=== PATIENT | female | born 1960 | race Caucasian/White ===

== ENCOUNTER 2018-03-01 18:41 | Inpatient (IN) | payer MEDICAID ==
[~2018-03-01] VITALS: Ht 152.4 cm; Wt 64.0 kg
[~2018-03-01 18:41] MED LIST: PHENY100 PO
[2018-03-01] MEDS ORDERED: SODIUM CHLORIDE 0.9% 1,000 ML IV ONE (19:30)
[2018-03-01] MEDS ORDERED: MAGNESIUM SULFATE 2 GM, MVI, ADULT NO.1 WITH VIT K 10 ML, THIAMINE HCL 100 MG, FOLIC AC... IV ONE ×5 (19:30)
[2018-03-01 20:15] LABS: BASOPHILS % (AUTO) 2.9 % (0.0-2.0); EOSINOPHILS % (AUTO) 6.8 % (1.0-6.0); HEMATOCRIT 28.5 % (36-46); HEMOGLOBIN 9.5 g/dL (12.0-16.0); LYMPHOCYTES # (AUTO) 1.3 K/uL (1.0-4.8); LYMPHOCYTES % (AUTO) 32.2 % (22.0-44.0); MEAN CORPUSCULAR HEMOGLOBIN 31.5 pg (26.0-34.0); MEAN CORPUSCULAR HGB CONC 33.5 G/dL (31.0-37.0); MEAN CORPUSCULAR VOLUME 94 fL (80-100); MONOCYTES # (AUTO) 0.4 K/uL (0.1-1.0); MONOCYTES % (AUTO) 9.8 % (2.0-9.0); NEUTROPHILS % (AUTO) 48.3 % (40.0-70.0); PLATELET COUNT (AUTO) 129 K/uL (150-450); RED BLOOD CELL COUNT(AUTO) 3.03 MIL/uL (4.00-5.20); RED CELL DISTRIBUTION WIDTH 22.3 % (11.5-14.5)
[2018-03-01 20:25] LABS: ANION GAP 12 mmol/L (8-16); CALCIUM, TOTAL 8.9 mg/dL (8.8-10.5); CARBON DIOXIDE 22 mmol/L (22-29); CHLORIDE 108 mmol/L (98-107); CREATININE 0.53 mg/dL (0.60-1.30); GLOMERULAR FILTR. RATE CALC > 60 mL/min (>60); GLUCOSE,RANDOM 74 mg/dL (70-110); POTASSIUM 3.6 mmol/L (3.5-5.1); SODIUM SERUM 142 mmol/L (136-145); UREA NITROGEN, BLOOD 9 mg/dL (7-18)
[2018-03-01 20:31] LABS: ALANINE AMINOTRANSFERASE 47 U/L (12-78); ALKALINE PHOSPHATASE 184 U/L (46-116); ASPARTATE AMINOTRANSFERASE 98 U/L (15-37); BILIRUBIN,TOTAL 1.7 mg/dL (0.1-1.0); TOTAL PROTEIN, SERUM 7.1 g/dL (6.4-8.2)
[2018-03-01 20:42] LABS: AMPHET/METH SCREEN,URINE POSITIVE (NEGATIVE); BARBITURATE SCREEN, URINE NEGATIVE (NEGATIVE); BENZODIAZEPINES SCREEN,URINE POSITIVE (NEGATIVE); CANNABINOID SCREEN,URINE NEGATIVE (NEGATIVE); COCAINE SCREEN,URINE NEGATIVE (NEGATIVE); METHADONE SCREEN, URINE NEGATIVE (NEGATIVE); OPIATE SCREEN,URINE NEGATIVE (NEGATIVE); PHENCYCLIDINE SCREEN,URINE NEGATIVE (NEGATIVE)
[2018-03-01 20:48] LABS: PLATELET MORPHOLOGY COMMENT DECREASED
[2018-03-01] MEDS ORDERED: ACETAMINOPHEN 325 MG TABLET PO ONE (21:45)
[2018-03-01] MEDS ORDERED: LORazepam 1 MG TABLET PO ONE (22:30)
[2018-03-01 23:51] LABS: HEMOGLOBIN A1C 4.2 % (4.5-6.2)
[2018-03-01 23:59] LABS: CHOL/HDL RATIO 5.3 (3.9-5.7); CHOLESTEROL 143 mg/dL (131-200); FREE T4 (FREE THYROXINE) 0.82 ng/dL (0.76-1.46); HDL CHOLESTEROL 27 mg/dL (40-60); LDL CHOL (CALC.) 105 mg/dL (0-130); THYROID STIMULATING HORMONE 3.11 uIU/mL (0.36-3.74); TRIGLYCERIDES 57 mg/dL (15-150)
[2018-03-02] MEDS: LORazepam 2 MG TABLET PO PRN ×3 (09:38→21:11)
[2018-03-02 16:30] VITALS: BP 128/87
[2018-03-02] MEDS ORDERED: BENZOCAINE/MENTHOL LOZENGE MM PRN (20:00)
[2018-03-02] MEDS ORDERED: MAG HYDROX/AL HYDROX/SIMETH ES 30 ML SUSPENSION UDCUP PO PRN (20:00)
[2018-03-02] MEDS ORDERED: MAGNESIUM HYDROXIDE SUSPENSION 30 ML UDCUP PO PRN (20:00)
[2018-03-02] MEDS ORDERED: ALBUTEROL SULFATE HFA 90 MCG/PUFF 8 GM INHALER IH PRN (20:00)
[2018-03-02] MEDS ORDERED: ONDANSETRON HCL 4 MG TABLET PO PRN (20:00)
[2018-03-02] MEDS ORDERED: PETROLATUM,WHITE 71 GM JELLY TP PRN (20:00)
[2018-03-02] MEDS ORDERED: CloNIDine HCL 0.1 MG TABLET PO PRN (20:00)
[2018-03-02] MEDS ORDERED: ACETAMINOPHEN 325 MG TABLET PO PRN (20:00)
[2018-03-02] MEDS ORDERED: BACITRACIN 28.4 GM OINTMENT TP PRN (20:00)
[2018-03-02] MEDS: ZOLPIDEM TARTRATE 10 MG TABLET PO PRN (21:11)
[2018-03-03] VITALS (15 sets, daily range): BP systolic 106–143; BP diastolic 56–85
[2018-03-03] MEDS: IBUPROFEN 600 MG TABLET PO PRN ×3 (03:56→20:23)
[2018-03-03] MEDS: LORazepam 2 MG TABLET PO PRN ×3 (03:56→16:25)
[2018-03-03] MEDS: DOCUSATE SODIUM 100 MG CAPSULE PO SCH (09:29)
[2018-03-03] MEDS: PHENYTOIN SODIUM 100 MG ER CAPSULE PO SCH ×3 (09:29→16:20)
[2018-03-03] MEDS: OMEPRAZOLE 20 MG CAPSULE PO SCH (09:29)
[2018-03-03] MEDS: NICOTINE 21 MG/24 HOUR PATCH TD SCH (09:29)
[2018-03-03] MEDS: HALOPERIDOL 5 MG TABLET PO PRN ×2 (11:01→20:27)
[2018-03-03] MEDS ORDERED: PROMETHAZINE HCL 25 MG TABLET PO PRN (11:30)
[2018-03-03] MEDS ORDERED: GuaiFENesin/D-METHORPHAN [SUGAR-FREE] 200-20MG/10 ML SYRUP UDCUP PO PRN (11:30)
[2018-03-03] MEDS ORDERED: LORazepam 2 MG TABLET PO PRN (11:30)
[2018-03-03] MEDS ORDERED: HydrOXYzine PAMOATE 50 MG CAPSULE PO PRN (11:30)
[2018-03-03] MEDS ORDERED: CYANOCOBALAMIN 1,000 MCG/ML VIAL IM ONE (11:45)
[2018-03-03] MEDS: THIAMINE HCL 100 MG TABLET PO SCH (16:20)
[2018-03-03] MEDS: ZOLPIDEM TARTRATE 10 MG TABLET PO PRN (20:23)
[2018-03-03] MEDS: MIRTAZAPINE 15 MG TABLET PO SCH (20:25)
[2018-03-04] VITALS (8 sets, daily range): BP systolic 97–141; BP diastolic 60–88
[2018-03-04] MEDS ORDERED: LORazepam 2 MG TABLET PO PRN (07:00)
[2018-03-04] MEDS: LORazepam 2 MG TABLET PO SCH ×4 (08:29→21:14)
[2018-03-04] MEDS: DOCUSATE SODIUM 100 MG CAPSULE PO SCH (08:30)
[2018-03-04] MEDS: THIAMINE HCL 100 MG TABLET PO SCH ×2 (08:30→17:02)
[2018-03-04] MEDS: PHENYTOIN SODIUM 100 MG ER CAPSULE PO SCH ×3 (08:30→17:02)
[2018-03-04] MEDS: FOLIC ACID 1 MG TABLET PO SCH (08:30)
[2018-03-04] MEDS: MULTIVITAMINS WITH MINERALS, THERAPEUTIC TABLET PO SCH (08:30)
[2018-03-04] MEDS: OMEPRAZOLE 20 MG CAPSULE PO SCH (08:30)
[2018-03-04] MEDS: NICOTINE 21 MG/24 HOUR PATCH TD SCH (08:32)
[2018-03-04] MEDS: HALOPERIDOL 5 MG TABLET PO PRN (19:43)
[2018-03-04] MEDS: ZOLPIDEM TARTRATE 10 MG TABLET PO PRN (21:14)
[2018-03-04] MEDS: MIRTAZAPINE 15 MG TABLET PO SCH (21:14)
[2018-03-05 06:25] VITALS: BP 115/71
[2018-03-05 08:30] VITALS: BP 133/77
[2018-03-05 08:55] VITALS: BP 156/78
[2018-03-05] MEDS: FOLIC ACID 1 MG TABLET PO SCH (08:59)
[2018-03-05] MEDS: THIAMINE HCL 100 MG TABLET PO SCH ×2 (08:59→16:47)
[2018-03-05] MEDS: IBUPROFEN 600 MG TABLET PO PRN (08:59)
[2018-03-05] MEDS: PHENYTOIN SODIUM 100 MG ER CAPSULE PO SCH ×3 (08:59→16:47)
[2018-03-05] MEDS: LORazepam 2 MG TABLET PO SCH ×4 (08:59→20:53)
[2018-03-05] MEDS: MULTIVITAMINS WITH MINERALS, THERAPEUTIC TABLET PO SCH (08:59)
[2018-03-05] MEDS: OMEPRAZOLE 20 MG CAPSULE PO SCH (08:59)
[2018-03-05] MEDS: DOCUSATE SODIUM 100 MG CAPSULE PO SCH (08:59)
[2018-03-05] MEDS: NICOTINE 21 MG/24 HOUR PATCH TD SCH (09:02)
[2018-03-05 17:09] VITALS: BP 132/70
[2018-03-05] MEDS: MIRTAZAPINE 15 MG TABLET PO SCH (20:53)
[2018-03-06] MEDS: LOPERAMIDE HCL 2 MG CAPSULE PO PRN ×2 (01:46→20:34)
[2018-03-06 02:20] VITALS: BP 134/74
[2018-03-06 02:21] VITALS: BP 134/74
[2018-03-06] MEDS ORDERED: LORazepam 1 MG TABLET PO PRN (07:00)
[2018-03-06] MEDS: FOLIC ACID 1 MG TABLET PO SCH (09:04)
[2018-03-06] MEDS: THIAMINE HCL 100 MG TABLET PO SCH ×2 (09:04→16:10)
[2018-03-06] MEDS: PHENYTOIN SODIUM 100 MG ER CAPSULE PO SCH ×3 (09:04→16:10)
[2018-03-06] MEDS: NICOTINE 21 MG/24 HOUR PATCH TD SCH (09:04)
[2018-03-06] MEDS: OMEPRAZOLE 20 MG CAPSULE PO SCH (09:04)
[2018-03-06] MEDS: MULTIVITAMINS WITH MINERALS, THERAPEUTIC TABLET PO SCH (09:04)
[2018-03-06] MEDS: LORazepam 1 MG TABLET PO SCH ×4 (09:04→20:32)
[2018-03-06] MEDS: DOCUSATE SODIUM 100 MG CAPSULE PO SCH (09:04)
[2018-03-06 09:30] VITALS: BP 122/71
[2018-03-06 09:34] VITALS: BP 122/72
[2018-03-06] MEDS: FLUoxetine HCL 20 MG CAPSULE PO SCH (11:57)
[2018-03-06 17:00] VITALS: BP 132/70
[2018-03-06 17:01] VITALS: BP 132/70
[2018-03-06] MEDS: MIRTAZAPINE 15 MG TABLET PO SCH (20:32)
[2018-03-07] MEDS: LOPERAMIDE HCL 2 MG CAPSULE PO PRN ×3 (00:12→12:22)
[2018-03-07 03:09] VITALS: BP 135/71
[2018-03-07 03:11] VITALS: BP 135/71
[2018-03-07 08:09] VITALS: BP 129/73
[2018-03-07 08:25] VITALS: BP 129/73
[2018-03-07] MEDS: DOCUSATE SODIUM 100 MG CAPSULE PO SCH (09:00)
[2018-03-07] MEDS: OMEPRAZOLE 20 MG CAPSULE PO SCH (09:17)
[2018-03-07] MEDS: FLUoxetine HCL 20 MG CAPSULE PO SCH (09:17)
[2018-03-07] MEDS: PHENYTOIN SODIUM 100 MG ER CAPSULE PO SCH ×3 (09:17→16:21)
[2018-03-07] MEDS: MULTIVITAMINS WITH MINERALS, THERAPEUTIC TABLET PO SCH (09:22)
[2018-03-07] MEDS: NICOTINE 21 MG/24 HOUR PATCH TD SCH (09:22)
[2018-03-07] MEDS: THIAMINE HCL 100 MG TABLET PO SCH ×2 (09:22→16:21)
[2018-03-07] MEDS: FOLIC ACID 1 MG TABLET PO SCH (09:23)
[2018-03-07] MEDS: LORazepam 1 MG TABLET PO PRN ×2 (12:22→21:24)
[2018-03-07 19:13] VITALS: BP 131/75
[2018-03-07 19:16] VITALS: BP 131/75
[2018-03-07] MEDS: MIRTAZAPINE 15 MG TABLET PO SCH (20:23)
[2018-03-07] MEDS: ZOLPIDEM TARTRATE 10 MG TABLET PO PRN (20:23)
[2018-03-08 03:50] VITALS: BP 131/77
[2018-03-08] MEDS: IBUPROFEN 600 MG TABLET PO PRN (03:57)
[2018-03-08] MEDS: LORazepam 2 MG TABLET PO PRN ×2 (03:57→14:05)
[2018-03-08] MEDS: FERROUS SULFATE 325 MG EC TABLET PO SCH ×2 (06:35→17:54)
[2018-03-08 08:00] VITALS: BP 161/88
[2018-03-08] MEDS: THIAMINE HCL 100 MG TABLET PO SCH ×3 (09:00→17:54)
[2018-03-08] MEDS: OMEPRAZOLE 20 MG CAPSULE PO SCH (09:00)
[2018-03-08] MEDS: NICOTINE 21 MG/24 HOUR PATCH TD SCH (09:00)
[2018-03-08] MEDS: FOLIC ACID 1 MG TABLET PO SCH ×2 (09:00→12:57)
[2018-03-08] MEDS: FLUoxetine HCL 20 MG CAPSULE PO SCH (09:00)
[2018-03-08] MEDS: PHENYTOIN SODIUM 100 MG ER CAPSULE PO SCH ×3 (09:00→17:54)
[2018-03-08] MEDS: DOCUSATE SODIUM 100 MG CAPSULE PO SCH (09:00)
[2018-03-08 12:35] VITALS: BP 111/62
[2018-03-08 17:00] VITALS: BP 112/68
[2018-03-08] MEDS: MIRTAZAPINE 15 MG TABLET PO SCH (20:49)
[2018-03-08] MEDS: ZOLPIDEM TARTRATE 10 MG TABLET PO PRN (21:27)
[2018-03-09 02:30] VITALS: BP 127/77
[2018-03-09] MEDS: LORazepam 2 MG TABLET PO PRN ×2 (02:34→16:13)
[2018-03-09] MEDS: FERROUS SULFATE 325 MG EC TABLET PO SCH ×2 (06:53→16:47)
[2018-03-09] MEDS: PHENYTOIN SODIUM 100 MG ER CAPSULE PO SCH ×3 (08:22→16:14)
[2018-03-09] MEDS: FOLIC ACID 1 MG TABLET PO SCH (08:22)
[2018-03-09] MEDS: THIAMINE HCL 100 MG TABLET PO SCH ×2 (08:22→16:14)
[2018-03-09] MEDS: FLUoxetine HCL 20 MG CAPSULE PO SCH (08:22)
[2018-03-09] MEDS: DOCUSATE SODIUM 100 MG CAPSULE PO SCH (08:22)
[2018-03-09] MEDS: NICOTINE 21 MG/24 HOUR PATCH TD SCH (08:22)
[2018-03-09] MEDS: OMEPRAZOLE 20 MG CAPSULE PO SCH (08:22)
[2018-03-09 10:40] VITALS: BP 126/88
[2018-03-09 19:43] VITALS: BP 124/78
[2018-03-09] MEDS: MIRTAZAPINE 15 MG TABLET PO SCH (20:28)
[2018-03-09] MEDS: ZOLPIDEM TARTRATE 10 MG TABLET PO PRN (20:29)
[2018-03-10] MEDS: LORazepam 2 MG TABLET PO PRN ×4 (01:48→20:39)
[2018-03-10 01:49] VITALS: BP 120/69
[2018-03-10] MEDS: FERROUS SULFATE 325 MG EC TABLET PO SCH ×2 (06:32→17:25)
[2018-03-10] MEDS: FOLIC ACID 1 MG TABLET PO SCH (08:16)
[2018-03-10] MEDS: OMEPRAZOLE 20 MG CAPSULE PO SCH (08:16)
[2018-03-10] MEDS: THIAMINE HCL 100 MG TABLET PO SCH ×2 (08:16→16:29)
[2018-03-10] MEDS: FLUoxetine HCL 20 MG CAPSULE PO SCH (08:16)
[2018-03-10] MEDS: DOCUSATE SODIUM 100 MG CAPSULE PO SCH (08:16)
[2018-03-10] MEDS: PHENYTOIN SODIUM 100 MG ER CAPSULE PO SCH ×3 (08:17→16:29)
[2018-03-10] MEDS: NICOTINE 21 MG/24 HOUR PATCH TD SCH (08:19)
[2018-03-10 10:30] VITALS: BP 132/70
[2018-03-10] MEDS: MIRTAZAPINE 15 MG TABLET PO SCH (20:39)
[2018-03-10] MEDS: HALOPERIDOL 5 MG TABLET PO PRN (20:39)
[2018-03-10 21:43] VITALS: BP 120/65
[2018-03-10 22:31] VITALS: BP 120/65
[2018-03-11 03:25] VITALS: BP 118/68
[2018-03-11] MEDS: FERROUS SULFATE 325 MG EC TABLET PO SCH ×2 (06:57→17:25)
[2018-03-11] MEDS: NICOTINE 21 MG/24 HOUR PATCH TD SCH (09:00)
[2018-03-11] MEDS: FOLIC ACID 1 MG TABLET PO SCH (09:28)
[2018-03-11] MEDS: THIAMINE HCL 100 MG TABLET PO SCH ×2 (09:28→16:25)
[2018-03-11] MEDS: DOCUSATE SODIUM 100 MG CAPSULE PO SCH (09:29)
[2018-03-11] MEDS: FLUoxetine HCL 20 MG CAPSULE PO SCH (09:29)
[2018-03-11] MEDS: OMEPRAZOLE 20 MG CAPSULE PO SCH (09:29)
[2018-03-11] MEDS: PHENYTOIN SODIUM 100 MG ER CAPSULE PO SCH ×3 (09:29→16:25)
[2018-03-11] MEDS ORDERED: LORazepam 0.5 MG TABLET PO PRN (17:15)
[2018-03-11 17:26] VITALS: BP 123/71
[2018-03-11] MEDS: HALOPERIDOL 5 MG TABLET PO PRN (20:02)
[2018-03-11] MEDS ORDERED: MIRTAZAPINE 15 MG TABLET PO SCH (21:00)
[2018-03-11] MEDS: ZOLPIDEM TARTRATE 10 MG TABLET PO PRN (22:09)
[2018-03-12] MEDS: FERROUS SULFATE 325 MG EC TABLET PO SCH (06:54)
[2018-03-12 06:58] LABS: BASOPHILS % (AUTO) 2.8 % (0.0-2.0); HEMATOCRIT 32.8 % (36-46); HEMOGLOBIN 11.2 g/dL (12.0-16.0); LYMPHOCYTES # (AUTO) 1.5 K/uL (1.0-4.8); LYMPHOCYTES % (AUTO) 31.6 % (22.0-44.0); MEAN CORPUSCULAR HEMOGLOBIN 31.9 pg (26.0-34.0); MEAN CORPUSCULAR HGB CONC 34.2 G/dL (31.0-37.0); MEAN CORPUSCULAR VOLUME 93 fL (80-100); MONOCYTES # (AUTO) 0.7 K/uL (0.1-1.0); MONOCYTES % (AUTO) 14.1 % (2.0-9.0); NEUTROPHILS # (AUTO) 2.1 K/uL (1.8-7.7); NEUTROPHILS % (AUTO) 43.5 % (40.0-70.0); PLATELET COUNT (AUTO) 178 K/uL (150-450); RED BLOOD CELL COUNT(AUTO) 3.52 MIL/uL (4.00-5.20); RED CELL DISTRIBUTION WIDTH 20.9 % (11.5-14.5)
[2018-03-12 07:33] LABS: ALANINE AMINOTRANSFERASE 50 U/L (12-78); ALBUMIN 3.3 g/dL (3.4-5.0); ALKALINE PHOSPHATASE 174 U/L (46-116); ANION GAP 11 mmol/L (8-16); ASPARTATE AMINOTRANSFERASE 72 U/L (15-37); BILIRUBIN,TOTAL 1.5 mg/dL (0.1-1.0); CALCIUM, TOTAL 9.5 mg/dL (8.8-10.5); CARBON DIOXIDE 23 mmol/L (22-29); CHLORIDE 105 mmol/L (98-107); CREATININE 0.61 mg/dL (0.60-1.30); GLOMERULAR FILTR. RATE CALC > 60 mL/min (>60); GLUCOSE,RANDOM 134 mg/dL (70-110); SODIUM SERUM 139 mmol/L (136-145); UREA NITROGEN, BLOOD 20 mg/dL (7-18)
[2018-03-12] MEDS: NICOTINE 21 MG/24 HOUR PATCH TD SCH (09:00)
[2018-03-12] MEDS: DOCUSATE SODIUM 100 MG CAPSULE PO SCH (09:33)
[2018-03-12] MEDS: FLUoxetine HCL 20 MG CAPSULE PO SCH (09:33)
[2018-03-12] MEDS: FOLIC ACID 1 MG TABLET PO SCH (09:33)
[2018-03-12] MEDS: THIAMINE HCL 100 MG TABLET PO SCH (09:33)
[2018-03-12] MEDS: PHENYTOIN SODIUM 100 MG ER CAPSULE PO SCH ×2 (09:33→12:29)
[2018-03-12] MEDS: OMEPRAZOLE 20 MG CAPSULE PO SCH (09:33)
[2018-03-12 09:41] VITALS: BP 150/79
[2018-03-12] MEDS ORDERED: MIRT30 PO (11:05)
[2018-03-12] MEDS ORDERED: FLUO-191 PO (11:05)
[2018-03-12] MEDS ORDERED: FOLI1 PO (11:07)
[2018-03-12] MEDS ORDERED: OMEP20 PO (11:08)
[2018-03-12] MEDS ORDERED: DSS100 PO (11:08)
[2018-03-12] MEDS ORDERED: FERR-89 PO (11:10)
== END 2018-03-12 13:15 | disposition home or self-care (01) | DRG 751 ==
LOC: EMS 18:42 → 3EI 03-02 15:32
PROVIDERS: ADMIT Psychiatry & Neurology Psychiatry; ATTEND Psychiatry & Neurology Psychiatry
DX: F33.2 Major depressive disorder, recurrent severe without psychotic features (principal); D61.818 Other pancytopenia; R45.851 Suicidal ideations; B19.20 Unspecified viral hepatitis C without hepatic coma; F10.229 Alcohol dependence with intoxication, unspecified; F12.90 Cannabis use, unspecified, uncomplicated; F15.10 Other stimulant abuse, uncomplicated; F10.239 Alcohol dependence with withdrawal, unspecified; G40.909 Epilepsy, unspecified, not intractable, without status epilepticus; Y90.6 Blood alcohol level of 120-199 mg/100 ml; F17.210 Nicotine dependence, cigarettes, uncomplicated; R04.0 Epistaxis; M54.2 Cervicalgia; Z59.0 Homelessness; Z88.8 Allergy status to other drugs, medicaments and biological substances; Z91.013 Allergy to seafood; Z79.899 Other long term (current) drug therapy; Z90.49 Acquired absence of other specified parts of digestive tract; Z71.6 Tobacco abuse counseling; Z71.41 Alcohol abuse counseling and surveillance of alcoholic; Z71.51 Drug abuse counseling and surveillance of drug abuser
CPT/HCPCS: 83036; 84439; 84443; 96365; 96366; 99285; G0480; J3411; J3420; J3475; J3490; J7030

== ENCOUNTER 2019-01-17 14:02 | Emergency (ER) | payer MEDICAID ==
[~2019-01-17] VITALS: Ht 165.1 cm; Wt 86.0 kg
[~2019-01-17 14:02] MED LIST changes: +DSS100 PO; +FERR-89 PO; +FLUO-191 PO; +MIRT30 PO; +OMEP20 PO
[2019-01-17 15:35] LABS: BASOPHILS % (AUTO) 2.4 % (0.0-2.0); HEMATOCRIT 26.5 % (36-46); HEMOGLOBIN 8.6 g/dL (12.0-16.0); LYMPHOCYTES # (AUTO) 0.8 K/uL (1.0-4.8); MEAN CORPUSCULAR HEMOGLOBIN 32.5 pg (26.0-34.0); MEAN CORPUSCULAR HGB CONC 32.6 G/dL (31.0-37.0); MEAN CORPUSCULAR VOLUME 100 fL (80-100); MONOCYTES # (AUTO) 0.4 K/uL (0.1-1.0); NEUTROPHILS # (AUTO) 1.3 K/uL (1.8-7.7); NEUTROPHILS % (AUTO) 47.6 % (40.0-70.0); PLATELET COUNT (AUTO) 102 K/uL (150-450); RED BLOOD CELL COUNT(AUTO) 2.65 MIL/uL (4.00-5.20); RED CELL DISTRIBUTION WIDTH 20.7 % (11.5-14.5)
[2019-01-17 16:14] LABS: ANION GAP 11 mmol/L (8-16); CALCIUM, TOTAL 8.9 mg/dL (8.8-10.5); CARBON DIOXIDE 23 mmol/L (22-29); CHLORIDE 108 mmol/L (98-107); CREATININE 0.57 mg/dL (0.60-1.30); GLOMERULAR FILTR. RATE CALC > 60 mL/min (>60); GLUCOSE,RANDOM 87 mg/dL (70-110); POTASSIUM 3.8 mmol/L (3.5-5.1); SODIUM SERUM 142 mmol/L (136-145); UREA NITROGEN, BLOOD 9 mg/dL (7-18)
[2019-01-17 16:19] LABS: B-TYPE NATRIURETIC PEPTIDE 42 pg/mL (0-100)
[2019-01-17 16:30] LABS: PLATELET MORPHOLOGY COMMENT LARGE PLTS PRESENT
[2019-01-17] MEDS ORDERED: SODIUM CHLORIDE 0.9% 1,000 ML IV ONE (16:30)
[2019-01-17 16:37] LABS: ALANINE AMINOTRANSFERASE 31 U/L (12-78); ALBUMIN 2.1 g/dL (3.4-5.0); ALKALINE PHOSPHATASE 262 U/L (46-116); ASPARTATE AMINOTRANSFERASE 101 U/L (15-37); CREATINE KINASE, TOTAL ONLY 162 U/L (26-192); TOTAL PROTEIN, SERUM 7.9 g/dL (6.4-8.2)
[2019-01-17 16:47] LABS: PHENYTOIN (DILANTIN) < 0.5 mcg/mL (10.0-20.0)
[2019-01-17 18:10] VITALS: BP 125/75
== END 2019-01-17 20:14 | disposition home or self-care (01) ==
LOC: EDUNIT# 14:02 → EMS 14:04
DX: F10.129 Alcohol abuse with intoxication, unspecified (principal); F17.210 Nicotine dependence, cigarettes, uncomplicated; F12.90 Cannabis use, unspecified, uncomplicated; Z91.013 Allergy to seafood; Z88.6 Allergy status to analgesic agent; Z79.899 Other long term (current) drug therapy; Y90.2 Blood alcohol level of 40-59 mg/100 ml
CPT/HCPCS: 36415; 71045; 80053; 80185; 82550; 83880; 84484; 85025; 93005; 99285; G0480; J7030

== ENCOUNTER 2019-01-18 03:12 | Emergency (ER) | payer MEDICAID ==
[~2019-01-18] VITALS: Ht 157.5 cm; Wt 50.0 kg
[2019-01-18 06:44] VITALS: BP 122/77
== END 2019-01-18 06:56 | disposition home or self-care (01) ==
LOC: EMS 03:14
DX: R06.00 Dyspnea, unspecified (principal); R06.02 Shortness of breath; F17.210 Nicotine dependence, cigarettes, uncomplicated; F12.90 Cannabis use, unspecified, uncomplicated; Z59.0 Homelessness; Z90.49 Acquired absence of other specified parts of digestive tract; Z88.6 Allergy status to analgesic agent; Z91.013 Allergy to seafood

== ENCOUNTER 2019-08-03 12:51 | Emergency (ER) | payer MEDICAID, OTHER ==
[~2019-08-03] VITALS: Ht 152.4 cm; Wt 46.0 kg
[2019-08-03] MEDS ORDERED: SODIUM CHLORIDE 0.9% 1,000 ML IV ONE (13:12)
[2019-08-03 13:48] LABS: BASOPHILS % (AUTO) 1.4 % (0.0-2.0); EOSINOPHILS % (AUTO) 3.9 % (1.0-6.0); HEMATOCRIT 27.1 % (36-46); LYMPHOCYTES # (AUTO) 1.7 K/uL (1.0-4.8); LYMPHOCYTES % (AUTO) 29.5 % (22.0-44.0); MEAN CORPUSCULAR HEMOGLOBIN 30.3 pg (26.0-34.0); MEAN CORPUSCULAR HGB CONC 33.3 G/dL (31.0-37.0); MEAN CORPUSCULAR VOLUME 91 fL (80-100); MONOCYTES # (AUTO) 0.7 K/uL (0.1-1.0); MONOCYTES % (AUTO) 12.2 % (2.0-9.0); NEUTROPHILS # (AUTO) 3.1 K/uL (1.8-7.7); PLATELET COUNT (AUTO) 148 K/uL (150-450); RED BLOOD CELL COUNT(AUTO) 2.98 MIL/uL (4.00-5.20); RED CELL DISTRIBUTION WIDTH 19.7 % (11.5-14.5)
[2019-08-03 13:51] LABS: ANION GAP 15 mmol/L (8-16); CALCIUM, TOTAL 8.5 mg/dL (8.8-10.5); CARBON DIOXIDE 25 mmol/L (22-29); CHLORIDE 110 mmol/L (98-107); CREATININE 0.85 mg/dL (0.60-1.30); GLOMERULAR FILTR. RATE CALC > 60 mL/min (>60); GLUCOSE,RANDOM 127 mg/dL (70-110); POTASSIUM 3.3 mmol/L (3.5-5.1); SODIUM SERUM 150 mmol/L (136-145); UREA NITROGEN, BLOOD 13 mg/dL (7-18)
[2019-08-03 13:55] LABS: INR 1.8 (0.9-1.1); PROTHROMBIN TIME 18.1 SEC (9.4-11.6)
[2019-08-03 13:56] LABS: ALANINE AMINOTRANSFERASE 36 U/L (12-78); ALBUMIN 2.6 g/dL (3.4-5.0); ALKALINE PHOSPHATASE 222 U/L (46-116); ASPARTATE AMINOTRANSFERASE 82 U/L (15-37); BILIRUBIN,TOTAL 1.9 mg/dL (0.1-1.0); TOTAL PROTEIN, SERUM 7.8 g/dL (6.4-8.2)
[2019-08-03 14:46] VITALS: BP 113/65
[2019-08-03 15:40] LABS: APPEARANCE,URINE CLOUDY (CLEAR); BILIRUBIN,URINE NEGATIVE (NEGATIVE); GLUCOSE, URINE (UA) NEGATIVE (NEGATIVE); KETONES,URINE NEGATIVE (NEGATIVE); LEUKOCYTE ESTERASE ,URINE MODERATE (NEGATIVE); NITRATE,URINE POSITIVE (NEGATIVE); OCCULT BLOOD,URINE LARGE (NEGATIVE); PH,URINE 6.5 (5.0-8.0); PROTEIN,URINE TRACE (NEGATIVE)
[2019-08-03 15:51] LABS: AMPHET/METH SCREEN,URINE POSITIVE (NEGATIVE); BARBITURATE SCREEN, URINE POSITIVE (NEGATIVE); BENZODIAZEPINES SCREEN,URINE POSITIVE (NEGATIVE); CANNABINOID SCREEN,URINE NEGATIVE (NEGATIVE); COCAINE SCREEN,URINE NEGATIVE (NEGATIVE); METHADONE SCREEN, URINE NEGATIVE (NEGATIVE); OPIATE SCREEN,URINE NEGATIVE (NEGATIVE)
[2019-08-03 15:56] LABS: PHENCYCLIDINE SCREEN,URINE NEGATIVE (NEGATIVE)
[2019-08-03 16:07] LABS: BACTERIA,URINE Many /HPF (None Seen); WBC,URINE 26-50 /HPF (0-5)
== END 2019-08-03 15:56 | disposition left against medical advice (07) ==
LOC: EMS 12:55
DX: R07.89 Other chest pain (principal); F10.229 Alcohol dependence with intoxication, unspecified; F17.210 Nicotine dependence, cigarettes, uncomplicated; F12.90 Cannabis use, unspecified, uncomplicated; Z59.0 Homelessness; Z98.890 Other specified postprocedural states; Z91.013 Allergy to seafood; Z90.49 Acquired absence of other specified parts of digestive tract; Z86.73 Personal history of transient ischemic attack (TIA), and cerebral infarction without residual deficits; Z88.8 Allergy status to other drugs, medicaments and biological substances; Z88.5 Allergy status to narcotic agent; Y90.8 Blood alcohol level of 240 mg/100 ml or more
CPT/HCPCS: 36415; 71045; 80053; 80307; 81001; 84484; 85025; 85610; 87077; 87086; 87186; 93005; 99285; G0480; J7030